=== PATIENT | female | born 1945 | race Caucasian/White ===

== ENCOUNTER 2016-06-18 10:05 | Emergency (ER) | payer BC ==
[~2016-06-18] VITALS: Ht 165.1 cm; Wt 55.2 kg
[~2016-06-18 10:05] MED LIST: CALCTAB5 PO; CETI10TA84 PO
[2016-06-18 10:14] VITALS: TEMP 37
[2016-06-18] MEDS ORDERED: AZIT250T PO (10:26)
[2016-06-18] MEDS ORDERED: SODIUM CHLORIDE 0.9% 500ML 500 ML IV STA (10:42)
[2016-06-18 10:56] LABS: BASO % 0.4 %; BASO ABS # 0.04 K/uL (0-0.2); COMPLETE YES; EOS % 1.3 %; HEMATOCRIT 38.9 % (37-47); IG% 0.2 %; LYMPH % 15.2 %; LYMPH ABS # 1.47 K/uL (1.2-3.4); MEAN CELL VOLUME 95.6 fL (80-100); MEAN CORPUSCULAR HEMOGLOBIN 32.2 pg (25-34); MEAN CORPUSCULAR HGB CONC 33.7 g/dl (32-36); MEAN PLATELET VOLUME 9.8 fL (7.4-10.4); NEUT % 71.9 %; PLATELET COUNT 261 K/uL (130-400); RED BLOOD COUNT 4.07 M/uL (4.2-5.4)
[2016-06-18 11:08] LABS: ALT/SGPT 167 U/L (12-78); AST/SGOT 96 U/L (15-37); BLOOD UREA NITROGEN 10 mg/dl (7-18); BUN/CREATININE RATIO 11.4 (10-20); CARBON DIOXIDE 29 mmol/L (21-32); CHLORIDE 103 mmol/L (98-107); CREATININE 0.88 mg/dl (0.60-1.20); GLUCOSE 105 mg/dl (70-99); POTASSIUM 3.9 mmol/L (3.5-5.1); PROTHROMBIN TIME (PATIENT) 10.4 SECONDS (9.0-12.0); SODIUM 140 mmol/L (136-145)
[2016-06-18 11:12] LABS: ALKALINE PHOSPHATASE 187 U/L (45-117)
--- NOTE | 2016-06-18 11:14 | DIAGNOSTIC IMAGING REPORT ---
CHEST ONE VIEW PORTABLE CLINICAL HISTORY: Respiratory distress. Dyspnea. COMPARISON STUDY: No previous studies for comparison. FINDINGS: Lung volumes are normal. There is no pneumothorax or pleural effusion. There may be mild right lower lung opacity. There is suspected biapical scarring. There is no evidence of pulmonary edema. Cardiac size is normal. IMPRESSION: Possible mild right lower lung opacity. Normal structures or atelectasis is favored although mild consolidation could appear similar. Electronically signed by: Christ Cotto M.D. 06/18/2016 11:12 AM
[2016-06-18 11:34] VITALS: O2SAT 96; Ht 165.1 cm; Wt 55.2 kg
--- NOTE | 2016-06-18 12:13 | DIAGNOSTIC IMAGING REPORT ---
CHEST CTA for PULMONARY ARTERIES CT DOSE: 178.18 mGy.cm HISTORY: Chest pain dyspnea TECHNIQUE: Multiaxial CT images of the chest were performed following the intravenous administration of contrast to evaluate the pulmonary arteries. Maximal intensity projection images were also obtained. COMPARISON STUDY: None. FINDINGS: Thoracic aorta shows minimal atherosclerotic change. No evidence for aneurysm or dissection. Pulmonary vascularity enhances appropriately. There are no significant filling defects. There are findings of segmental atelectasis involving the anterior aspect right middle lobe, medial right lower lobe, as well as right perihilar region. Patchy parenchymal infiltrate posterior aspect right lower lobe. Mild peribronchial thickening throughout. IMPRESSION: 1. No evidence for pulmonary embolus. 2. Scattered areas of subsegmental atelectasis throughout both hemithoraces with a small parenchymal infiltrate superior segment right lower lobe 3. Mild peribronchial thickening throughout both hemithoraces. 4. Mild cardiomegaly. Electronically signed by: Barber Demarco M.D. 06/18/2016 12:11 PM
--- NOTE | 2016-06-18 13:38 | EMERGENCY ROOM VISIT NOTE ---
History Report prepared by Cristo: Vicky Belcher Under the Supervision of: Dr. Rocky Browning D.O. First contact with patient: 10:26 Chief Complaint: ABNORMAL LABS Stated Complaint: TROUBLE BREATHING-SENT BY KELLY ELIZABETH History of Present Illness The patient is a 70 year old female who presents to the Emergency Room with complaints of sudden abnormal labs that were noticed today. The patient was seen by her PCP yesterday for respiratory problems. He performed an EKG and a D- dimer. The EKG was unremarkable but her D-dimer was elevated so he recommended that she come into the ED for further evaluation. The patient states that she was in [facility] for one month and just got home 4 days ago. She states that her son felt sick prior to leaving [facility]. The day before she left she did not feel well and she stayed in bed all day. However, when she flew home 4 days ago she felt well. Three days ago, the patient began to experience a headache, sinus congestion, sore throat, dry cough, and fatigue. She denies ear pain. She also recorded a fever of 100.4 but states that she has not taken her temperature since then. Additionally, she developed chest heaviness with her other symptoms. The chest heaviness seems to be worse in the morning and gradually improves throughout the day. The patient states that the chest heaviness completely resolves sometimes but she is unsure of exactly when. She developed post nasal drip yesterday. Mucinex offered some relief of her symptoms but she has not taken it the past couple days. Source of History: patient Onset: today Position: other (generalized) Quality: other (abnormal labs) Timing: other (sudden) Associated Symptoms: + chest pain (heaviness), + cough (dry), + fatigue, + fevers (100.4 ), + headache, + sorethroat Note: post nasal drip, sinus congestion, no ear pain Review of Systems See HPI for pertinent positives & negatives. A total of 10 systems reviewed and were otherwise negative. Past Medical & Surgical Medical Problems: (1) Asthma (2) Cholecystectomy (3) Skin graft operation (4) Stripping of vein (5) Tonsillectomy Family History No significant family history Social History Smoking Status: Former Smoker Alcohol Use: occasionally Marital Status: Housing Status: lives with significant other Current/Historical Medications Scheduled Azithromycin (Zithromax), 250 MG PO DAILY Calcium (Caltrate), 600 MG PO BID Cetirizine (Zyrtec), 5-10 MG PO DAILY PRN Allergies Coded Allergies: Penicillins (Verified Allergy, Unknown, unsure, 06/18/16) Sulfa Drugs (Verified Adverse Reaction, Unknown, gi upset, 06/18/16) Physical Exam Vital Signs Date Time Temp Pulse Resp B/P Pulse Ox O2 Delivery O2 Flow Rate FiO2 06/18/16 13:44 66 16 110/70 97 06/18/16 11:34 96 Room Air 06/18/16 11:34 96 Room Air 06/18/16 11:33 70 16 108/63 96 Room Air 06/18/16 10:14 37.0 98 18 113/71 94 Room Air Physical Exam GENERAL: alert, sitting up in bed, well appearing, well nourished, no distress, non-toxic HEAD: No maxillary or frontal sinus tenderness. EYE EXAM: normal conjunctiva, PERRL and EOM's grossly intact OROPHARYNX: no exudate, no erythema, lips, buccal mucosa, and tongue normal and mucous membranes are moist NECK: supple, no nuchal rigidity, no adenopathy, non-tender, negative Brudzinski LUNGS: Clear to auscultation. Normal chest wall mechanics HEART: no murmurs, S1 normal and S2 normal ABDOMEN: abdomen soft, non-tender, normo-active bowel sounds, no masses, no rebound or guarding. BACK: Back is symmetrical on inspection and there is no deformity, no midline tenderness, no CVA tenderness. SKIN: no rashes and no bruising UPPER EXTREMITIES: upper extremities are grossly normal. LOWER EXTREMITIES: No pitting edema. Calves equal bilaterally. NEURO EXAM: Normal sensorium, cranial nerves II-XII grossly intact, normal speech, no gross weakness of arms, no gross weakness of legs. Medical Decision & Procedures ER Provider Diagnostic Interpretation: Xray results per the radiologist and my interpretation. Other results have been interpreted by the radiologist and reviewed by me. CHEST ONE VIEW PORTABLE CLINICAL HISTORY: Respiratory distress. Dyspnea. COMPARISON STUDY: No previous studies for comparison. FINDINGS: Lung volumes are normal. There is no pneumothorax or pleural effusion. There may be mild right lower lung opacity. There is suspected biapical scarring. There is no evidence of pulmonary edema. Cardiac size is normal. IMPRESSION: Possible mild right lower lung opacity. Normal structures or atelectasis is favored although mild consolidation could appear similar. Electronically signed by: Christ Cotto M.D. 06/18/2016 11:12 AM CHEST CTA for PULMONARY ARTERIES CT DOSE: 178.18 mGy.cm HISTORY: Chest pain dyspnea TECHNIQUE: Multiaxial CT images of the chest were performed following the intravenous administration of contrast to evaluate the pulmonary arteries. Maximal intensity projection images were also obtained. COMPARISON STUDY: None. FINDINGS: Thoracic aorta shows minimal atherosclerotic change. No evidence for aneurysm or dissection. Pulmonary vascularity enhances appropriately. There are no significant filling defects. There are findings of segmental atelectasis involving the anterior aspect right middle lobe, medial right lower lobe, as well as right perihilar region. Patchy parenchymal infiltrate posterior aspect right lower lobe. Mild peribronchial thickening throughout. IMPRESSION: 1. No evidence for pulmonary embolus. 2. Scattered areas of subsegmental atelectasis throughout both hemithoraces with a small parenchymal infiltrate superior segment right lower lobe 3. Mild peribronchial thickening throughout both hemithoraces. 4. Mild cardiomegaly. Electronically signed by: Barber Demarco M.D. 06/18/2016 12:11 PM Laboratory Results 06/18/16 10:30 Red Blood Count 4.07, Mean Corpuscular Volume 95.6, Mean Corpuscular Hemoglobin 32.2, Mean Corpuscular Hemoglobin Concent 33.7, Mean Platelet Volume 9.8, Neutrophils (%) (Auto) 71.9, Lymphocytes (%) (Auto) 15.2, Monocytes (%) (Auto) 11.0, Eosinophils (%) (Auto) 1.3, Basophils (%) (Auto) 0.4, Neutrophils # (Auto ) 6.97, Lymphocytes # (Auto) 1.47, Monocytes # (Auto) 1.07, Eosinophils # (Auto ) 0.13, Basophils # (Auto) 0.04 06/18/16 10:30 Test 06/18/16 10:30 06/18/16 11:05 White Blood Count 9.70 K/uL (4.8-10.8) Red Blood Count 4.07 M/uL (4.2-5.4) Hemoglobin 13.1 g/dL (12.0-16.0) Hematocrit 38.9 % (37-47) Mean Corpuscular Volume 95.6 fL (80-100) Mean Corpuscular Hemoglobin 32.2 pg (25-34) Mean Corpuscular Hemoglobin Concent 33.7 g/dl (32-36) Platelet Count 261 K/uL (130-400) Mean Platelet Volume 9.8 fL (7.4-10.4) Neutrophils (%) (Auto) 71.9 % Lymphocytes (%) (Auto) 15.2 % Monocytes (%) (Auto) 11.0 % Eosinophils (%) (Auto) 1.3 % Basophils (%) (Auto) 0.4 % Neutrophils # (Auto) 6.97 K/uL (1.4-6.5) Lymphocytes # (Auto) 1.47 K/uL (1.2-3.4) Monocytes # (Auto) 1.07 K/uL (0.11-0.59) Eosinophils # (Auto) 0.13 K/uL (0-0.5) Basophils # (Auto) 0.04 K/uL (0-0.2) RDW Standard Deviation 46.9 fL (36.4-46.3) RDW Coefficient of Variation 13.4 % (11.5-14.5) Immature Granulocyte % (Auto) 0.2 % Immature Granulocyte # (Auto) 0.02 K/uL (0.00-0.02) Prothrombin Time 10.4 SECONDS (9.0-12.0) Prothromb Time International Ratio 1.0 (0.9-1.1) Activated Partial Thromboplast Time 26.4 SECONDS (21.0-31.0) Partial Thromboplastin Ratio 1.0 Anion Gap 8.0 mmol/L (3-11) Est Creatinine Clear Calc Drug Dose 51.8 ml/min Estimated GFR () 77.2 Estimated GFR (Non- 66.6 BUN/Creatinine Ratio 11.4 (10-20) Calcium Level 9.0 mg/dl (8.5-10.1) Total Bilirubin 0.3 mg/dl (0.2-1) Aspartate Amino Transf (AST/SGOT) 96 U/L (15-37) Alanine Aminotransferase (ALT/SGPT) 167 U/L (12-78) Alkaline Phosphatase 187 U/L (45-117) Troponin I < 0.015 ng/ml (0-0.045) Total Protein 7.1 gm/dl (6.4-8.2) Albumin 3.5 gm/dl (3.4-5.0) Globulin 3.6 gm/dl (2.5-4.0) Albumin/Globulin Ratio 1.0 (0.9-2) Influenza Type A Antigen Neg for Influ A (NEG) Influenza Type B Antigen Neg for Influ B (NEG) Laboratory results per my review. Medications Administered Medications (Trade) Dose Ordered Sig/Jean Paul Route Start Time Stop Time Status Last Admin Dose Admin Sodium Chloride (Nss 500ml) 500 ml @ 999 mls/hr Q31M STAT IV 06/18/16 10:42 06/18/16 11:12 DC 06/18/16 11:16 999 MLS/HR ECG Indication: SOB/dyspnea Rate (beats per minute): 68 Rhythm: sinus rhythm Findings: left axis deviation, no ectopy ED Course ED COURSE: Vital signs were reviewed and showed normal. The patients medical record was reviewed The above diagnostic studies were performed and reviewed. ED treatments and interventions as stated above. 1033: The patient was evaluated in room B3. A complete history and physical examination was performed. 1042: Ordered Sodium Chloride 500 ml @ 999 mls/hr IV 1120: The nurse informed me that the patient does not want to have another EKG performed since she just got one yesterday. We are going to get the EKG from yesterday. 1258: Upon reevaluation, the patient is doing well. I instructed the patient to continue taking the azithromycin. I discussed my findings with the patient and she understands and agrees with the treatment plan. Based on the patients age, coexisting illnesses, exam and lab findings the decision to treat as an outpatient was made. The patient remained stable while under my care. The patient appeared well at the time of discharge. 1330: I told the patient to follow-up with her PCP for transaminitis. Medical Decision Differential diagnoses includes but is not limited to pneumonia, bronchitis, COPD/Asthma exacerbation, pneumothorax, pulmonary embolism, congestive heart failure, acute coronary syndrome Patient is a 70-year-old female who presents the ER with a productive cough and runny nose and chest tightness which has been there for the past 4 days. She has no exertional symptoms. EKG was unremarkable. Troponin was negative. Chest x-ray shows no focal infiltrate. She has a mild transaminitis on labs. Patient notes that she does have a history of elevated LFTs. She has no belly pain and consequently was not pursued any further. Recommended for follow-up next week. Vitals are stable. Sent her for a CT PE due to her recent travel. CT PE shows a clear pneumonia. She is currently on azithromycin. She notes she is feeling slightly better and she is discharged on azithromycin to follow- up with her primary care doctor is an outpatient for pneumonia. I also instructed her to follow-up for repeat LFTs within the week. Discussed with Pt concerning signs and symptoms to watch out for. Pt was instructed to follow up with their PCP and discussed with the patient their option to return to the ED at anytime for persistent or worsening symptoms. The appropriate anticipatory guidance and out-patient management, including indications for return to the emergency department, were explained at length to the patient and understood. Impression Primary Impression: Pneumonia Additional Impression: Transaminitis Scribe Attestation The scribe's documentation has been prepared under my direction and personally reviewed by me in its entirety. I confirm that the note above accurately reflects all work, treatment, procedures, and medical decision making performed by me. Departure Information Dispostion Home / Self-Care Referrals Kelly Elizabeth D.O. (PCP) Forms HOME CARE DOCUMENTATION FORM, IMPORTANT VISIT INFORMATION, WORK / SCHOOL INSTRUCTIONS Patient Instructions A Signature Page, My [facility], Pneumonia (Bacterial) - [facility] Additional Instructions Please follow up with your primary care doctor with in the next 24 hours. Any worsening of your symptoms, please return to the ED immediately. This includes fevers greater than 100.4, inability to eat or drink, passing out, worsening shortness breath, or any other concerning signs or symptoms from your stand point. Please continue your azithromycin as prescribed by primary care doctor. Her symptoms should improve within 48 hours.
[2016-06-18 13:44] VITALS: BP 110/70; PULSE 66; O2SAT 97
== END 2016-06-18 13:45 | disposition home or self-care (01) ==
LOC: C.EDB 10:07
DX: J18.9 Pneumonia, unspecified organism (principal); R74.0 Nonspecific elevation of levels of transaminase and lactic acid dehydrogenase [LDH]; J45.909 Unspecified asthma, uncomplicated; Z90.49 Acquired absence of other specified parts of digestive tract; Z87.891 Personal history of nicotine dependence; Z79.899 Other long term (current) drug therapy; Z88.0 Allergy status to penicillin; Z88.2 Allergy status to sulfonamides

== ENCOUNTER 2016-07-02 17:40 | Emergency (ER) | payer BC ==
[~2016-07-02] VITALS: Ht 165.1 cm; Wt 58.4 kg
[~2016-07-02 17:40] MED LIST changes: +AZIT250T PO
[2016-07-02 17:51] VITALS: TEMP 37.2; Ht 165.1 cm; Wt 58.4 kg
[2016-07-02] MEDS ORDERED: SODIUM CHLORIDE 0.9% 1000ML 1,000 ML IV STA (17:57)
[2016-07-02] MEDS ORDERED: CALC500C70 PO (18:12)
[2016-07-02] MEDS ORDERED: PRLSR20 PO (18:12)
[2016-07-02] MEDS ORDERED: TURM1CAP2 PO (18:13)
[2016-07-02] MEDS ORDERED: ASCO500T16 PO (18:13)
[2016-07-02 18:42] LABS: BASO % 0.3 %; BASO ABS # 0.03 K/uL (0-0.2); COMPLETE YES; EOS % 0.8 %; HEMATOCRIT 37.7 % (37-47); IG% 0.4 %; LYMPH % 7.9 %; MEAN CELL VOLUME 93.1 fL (80-100); MEAN CORPUSCULAR HEMOGLOBIN 31.1 pg (25-34); MEAN CORPUSCULAR HGB CONC 33.4 g/dl (32-36); MONO % 8.9 %; NEUT % 81.7 %; PLATELET COUNT 518 K/uL (130-400); RED BLOOD COUNT 4.05 M/uL (4.2-5.4); WHITE BLOOD COUNT 10.17 K/uL (4.8-10.8)
[2016-07-02 18:59] LABS: BLOOD UREA NITROGEN 9 mg/dl (7-18); BUN/CREATININE RATIO 11.4 (10-20); CALCIUM 8.9 mg/dl (8.5-10.1); CARBON DIOXIDE 31 mmol/L (21-32); CHLORIDE 98 mmol/L (98-107); CREATININE 0.76 mg/dl (0.60-1.20); GLUCOSE 108 mg/dl (70-99); MAGNESIUM 2.1 mg/dl (1.8-2.4); POTASSIUM 4.2 mmol/L (3.5-5.1); SODIUM 136 mmol/L (136-145)
[2016-07-02 19:04] LABS: INR 1.1 (0.9-1.1); PARTIAL THROMBOPLASTIN RATIO 1.1; PROTHROMBIN TIME (PATIENT) 11.4 SECONDS (9.0-12.0)
[2016-07-02 19:10] LABS: CKMB/CK RATIO 1.2 (0-3.0); THYROID STIMULATING HORMONE 0.623 uIu/ml (0.300-4.500)
[2016-07-02] MEDS ORDERED: OPTIRAY 320 IV PRN (19:30)
--- NOTE | 2016-07-02 19:51 | DIAGNOSTIC IMAGING REPORT ---
CT ANGIOGRAM OF THE CHEST CLINICAL HISTORY: Pneumonia. COMPARISON STUDY: Chest CT dated 06/18/2016. TECHNIQUE: Following the IV administration of 84 cc of Optiray 320, CT angiogram of the chest was performed from the upper abdomen to the thoracic inlet utilizing the pulmonary embolus protocol. Images are reviewed in the axial, sagittal, and coronal planes. 3-D MIPS images are created and assessed. IV contrast was administered without complication. CT DOSE: 201.90 mGy.cm FINDINGS: Thyroid: Imaged portions of the thyroid gland are normal in size and attenuation. Thoracic aorta: There is mild atherosclerotic calcification of the thoracic aorta, which is normal in caliber and demonstrates standard 3-vessel arch anatomy. No dissection is seen. Pulmonary vasculature: The pulmonary trunk is normal in caliber. There are no filling defects identified in main, lobar, or segmental pulmonary branches to suggest pulmonary embolus. Heart: The heart is mildly enlarged and without pericardial effusion. Lungs and pleural spaces: There is biapical scarring. There is dense patchy airspace consolidation in the right middle and right lower lobe. Patchy consolidation is also seen in the lingula. There is a small associated right pleural effusion. The trachea and central airways are clear. Mediastinum: There are enlarged mediastinal lymph nodes. A high right peritracheal node on image #257 measures 11 mm in short axis. A subcarinal node measures 1.5 cm in short axis as seen on image #188. Marisela: There are enlarged hilar lymph nodes. The largest is on the right and measures up to 1.6 cm short axis. Axillae: There is no axillary lymphadenopathy. Upper abdomen: Cholecystectomy clips are identified. A 9 mm cyst is noted in the left lobe of liver. Partially visualized upper abdominal viscera is otherwise within normal limits. Skeletal structures: The skeletal structures are osteopenic. No lytic or blastic bony lesions are seen. IMPRESSION: 1. There is no evidence of pulmonary embolus in the main, lobar, or segmental pulmonary arteries. 2. There is multifocal patchy airspace consolidation identified in the lingula, the right middle lobe, and the right lower lobe. There is a small associated right pleural effusion. The appearance is typical for multifocal pneumonia and this has worsened from 06/18/2016. Radiographic follow-up to resolution is recommended. 3. There are mildly enlarged mediastinal and hilar lymph nodes, likely on a reactive basis. 4. Mild cardiac enlargement. 5. Additional findings as above. Electronically signed by: Arnold King M.D. 07/02/2016 7:49 PM Dictated Date/Time: 07/02/2016 7:42 PM
--- NOTE | 2016-07-02 20:24 | EMERGENCY ROOM VISIT NOTE ---
History Report prepared by Cristo: Jovita Altman Under the Supervision of: Dr. Luciano Urban D.O. First contact with patient: 17:48 Chief Complaint: ALLERGIC REACTION Stated Complaint: MEDICATION SIDE EFFECT, WANTS EVAL. History of Present Illness The patient is a 70 year old female who presents to the Emergency Room with complaints of persistent bilateral feet and toe numbness that began around 1700 this evening. The patient states that today she took her first dose of Levaquin for persistent pneumonia. She states that June 16 she was diagnosed with pneumonia and was placed on Azithromycin. The patient states that she began to feel better and states that her fevers were going down. She states that she still had chills though. The patient additionally notes chest heaviness and shortness of breath, but states that it is not as bad as it originally was. The patient states that she had a chest x-ray done and her PCP placed her on Levaquin for the persistent pneumonia. She states that she took her first dose of Levaquin at 1300 today. The patient states that after she took the medications she went upstairs to lay down after drinking carrot juice, orange juice, and water. She states that when she went to get up, she noticed numbness to her bilateral feet and states that she thought if she would stand she thought that she would break her ankles. The patient states that she read the possible side effects of Levaquin, and states that numbness was one of the possible side effects. She states that today she is experiencing a headache, which she notes has been ongoing since she was diagnosed with pneumonia. The patient notes that she was in [facility] until June 14. She additionally states that she had blood work and a chest x-ray done today at her PCP's office. Source of History: patient Onset: 1700 this evening Position: foot (bilateral), toe(s) Quality: numbness Timing: other (persistent) Associated Symptoms: + SOB, + chest pain (heaviness), + headache Review of Systems See HPI for pertinent positives & negatives. A total of 10 systems reviewed and were otherwise negative. Past Medical & Surgical Medical Problems: (1) Asthma (2) Cholecystectomy (3) Skin graft operation (4) Stripping of vein (5) Tonsillectomy Family History No significant family history Social History Smoking Status: Former Smoker Alcohol Use: occasionally Marital Status: Housing Status: lives with significant other Current/Historical Medications Scheduled Ascorbic Acid (Ascorbic Acid), 500 MG PO DAILY Calcium/Vitamin D (Os-Mehrdad 500 Plus D), 1 TAB PO BID Cetirizine (Zyrtec), 5-10 MG PO DAILY PRN Omeprazole (Prilosec), 20 MG PO DAILY Turmeric (Curcuma Longa) (Turmeric), 450 MG PO DAILY Allergies Coded Allergies: Penicillins (Verified Allergy, Unknown, unsure, 07/02/16) Sulfa Drugs (Verified Adverse Reaction, Unknown, gi upset, 07/02/16) Physical Exam Vital Signs Date Time Temp Pulse Resp B/P Pulse Ox O2 Delivery O2 Flow Rate FiO2 07/02/16 19:15 104 118/70 118 129/76 112 131/82 07/02/16 17:54 125 07/02/16 17:51 37.2 115 25 148/88 96 Room Air 07/02/16 17:47 Room Air Physical Exam CONSTITUTIONAL/VITAL SIGNS: Reviewed / noted above. GENERAL: Non-toxic in appearance. INTEGUMENTARY: Warm, dry, and [place]. HEAD: Normocephalic. EYES: without scleral icterus or trauma. ENT/OROPHARYNX: clear and moist. LYMPHADENOPATHY/NECK: Is supple without lymphadenopathy or meningismus. RESPIRATORY: Lungs clear and equal. CARDIOVASCULAR: Tachycardic rate and regular rhythm. GI/ABDOMEN: Soft and nontender. No organomegaly or pulsatile mass. No rebound or guarding. Normal bowel sounds. EXTREMITIES: Warm and well perfused. Normal lower extremity reflexes. Normal strength. BACK: No CVA tenderness. NEUROLOGICAL: Intact without focal deficits. PSYCHIATRIC: normal affect. MUSCULOSKELETAL: Normally developed with good muscle tone. Medical Decision & Procedures ER Provider Diagnostic Interpretation: CT results as stated below per my review and radiologist interpretation: CT ANGIOGRAM OF THE CHEST CLINICAL HISTORY: Pneumonia. COMPARISON STUDY: Chest CT dated 06/18/2016. TECHNIQUE: Following the IV administration of 84 cc of Optiray 320, CT angiogram of the chest was performed from the upper abdomen to the thoracic inlet utilizing the pulmonary embolus protocol. Images are reviewed in the axial, sagittal, and coronal planes. 3-D MIPS images are created and assessed. IV contrast was administered without complication. CT DOSE: 201.90 mGy.cm FINDINGS: Thyroid: Imaged portions of the thyroid gland are normal in size and attenuation. Thoracic aorta: There is mild atherosclerotic calcification of the thoracic aorta, which is normal in caliber and demonstrates standard 3-vessel arch anatomy. No dissection is seen. Pulmonary vasculature: The pulmonary trunk is normal in caliber. There are no filling defects identified in main, lobar, or segmental pulmonary branches to suggest pulmonary embolus. Heart: The heart is mildly enlarged and without pericardial effusion. Lungs and pleural spaces: There is biapical scarring. There is dense patchy airspace consolidation in the right middle and right lower lobe. Patchy consolidation is also seen in the lingula. There is a small associated right pleural effusion. The trachea and central airways are clear. Mediastinum: There are enlarged mediastinal lymph nodes. A high right peritracheal node on image #257 measures 11 mm in short axis. A subcarinal node measures 1.5 cm in short axis as seen on image #188. Marisela: There are enlarged hilar lymph nodes. The largest is on the right and measures up to 1.6 cm short axis. Axillae: There is no axillary lymphadenopathy. Upper abdomen: Cholecystectomy clips are identified. A 9 mm cyst is noted in the left lobe of liver. Partially visualized upper abdominal viscera is otherwise within normal limits. Skeletal structures: The skeletal structures are osteopenic. No lytic or blastic bony lesions are seen. IMPRESSION: 1. There is no evidence of pulmonary embolus in the main, lobar, or segmental pulmonary arteries. 2. There is multifocal patchy airspace consolidation identified in the lingula, the right middle lobe, and the right lower lobe. There is a small associated right pleural effusion. The appearance is typical for multifocal pneumonia and this has worsened from 06/18/2016. Radiographic follow-up to resolution is recommended. 3. There are mildly enlarged mediastinal and hilar lymph nodes, likely on a reactive basis. 4. Mild cardiac enlargement. 5. Additional findings as above. Electronically signed by: Arnold King M.D. 07/02/2016 7:49 PM Dictated Date/Time: 07/02/2016 7:42 PM Laboratory Results 07/02/16 18:25 Red Blood Count 4.05, Mean Corpuscular Volume 93.1, Mean Corpuscular Hemoglobin 31.1, Mean Corpuscular Hemoglobin Concent 33.4, Mean Platelet Volume 9.0, Neutrophils (%) (Auto) 81.7, Lymphocytes (%) (Auto) 7.9, Monocytes (%) (Auto) 8.9, Eosinophils (%) (Auto) 0.8, Basophils (%) (Auto) 0.3, Neutrophils # (Auto) 8.31, Lymphocytes # (Auto) 0.80, Monocytes # (Auto) 0.91, Eosinophils # (Auto) 0.08, Basophils # (Auto) 0.03 07/02/16 18:25 Test 07/02/16 18:25 07/02/16 18:30 White Blood Count 10.17 K/uL (4.8-10.8) Red Blood Count 4.05 M/uL (4.2-5.4) Hemoglobin 12.6 g/dL (12.0-16.0) Hematocrit 37.7 % (37-47) Mean Corpuscular Volume 93.1 fL (80-100) Mean Corpuscular Hemoglobin 31.1 pg (25-34) Mean Corpuscular Hemoglobin Concent 33.4 g/dl (32-36) Platelet Count 518 K/uL (130-400) Mean Platelet Volume 9.0 fL (7.4-10.4) Neutrophils (%) (Auto) 81.7 % Lymphocytes (%) (Auto) 7.9 % Monocytes (%) (Auto) 8.9 % Eosinophils (%) (Auto) 0.8 % Basophils (%) (Auto) 0.3 % Neutrophils # (Auto) 8.31 K/uL (1.4-6.5) Lymphocytes # (Auto) 0.80 K/uL (1.2-3.4) Monocytes # (Auto) 0.91 K/uL (0.11-0.59) Eosinophils # (Auto) 0.08 K/uL (0-0.5) Basophils # (Auto) 0.03 K/uL (0-0.2) RDW Standard Deviation 43.8 fL (36.4-46.3) RDW Coefficient of Variation 12.9 % (11.5-14.5) Immature Granulocyte % (Auto) 0.4 % Immature Granulocyte # (Auto) 0.04 K/uL (0.00-0.02) Prothrombin Time 11.4 SECONDS (9.0-12.0) Prothromb Time International Ratio 1.1 (0.9-1.1) Activated Partial Thromboplast Time 29.2 SECONDS (21.0-31.0) Partial Thromboplastin Ratio 1.1 D-Dimer 4640 ug/L FEU (0-500) Anion Gap 7.0 mmol/L (3-11) Est Creatinine Clear Calc Drug Dose 62.0 ml/min Estimated GFR () 92.1 Estimated GFR (Non- 79.5 BUN/Creatinine Ratio 11.4 (10-20) Calcium Level 8.9 mg/dl (8.5-10.1) Magnesium Level 2.1 mg/dl (1.8-2.4) Total Creatine Kinase 57 U/L (26-192) Creatine Kinase MB 0.7 ng/ml (0.5-3.6) Creatine Kinase MB Ratio 1.2 (0-3.0) Troponin I < 0.015 ng/ml (0-0.045) Lipase 67 U/L (73-393) Thyroid Stimulating Hormone (TSH) 0.623 uIu/ml (0.300-4.500) Laboratory results as stated above per my review. Medications Administered Medications (Trade) Dose Ordered Sig/Jean Paul Route Start Time Stop Time Status Last Admin Dose Admin Sodium Chloride (Nss 1000ml) 1,000 ml @ 999 mls/hr Q1H1M STAT IV 07/02/16 17:57 07/02/16 18:57 DC 07/02/16 18:25 999 MLS/HR ECG Indication: chest pain Rate (beats per minute): 105 Rhythm: sinus tachycardia Findings: no acute ischemic change, no ectopy ED Course 1748: Previous medical records were reviewed. The patient was evaluated in room B5. A complete history and physical examination was performed. 1756: Ordered Sodium Chloride 1000 ml @ 999 mls/hr IV. 2023: I reevaluated the patient and she is resting comfortably. I discussed the exam findings with her and I discussed the treatment plan. She verbalized complete understanding and agreement. She is ready to go home. Medical Decision Differential includes acute coronary syndrome, myocardial infarction, CVA, TIA, anemia, infection, pneumonia, UTI, pyelonephritis, poor nutrition, dehydration, electrolyte disturbance,hypoglycemia. This is a 70-year-old female who presents to the ED with a chief complaint of tingling in her lower extremities. The patient states that she was seen by her PCP today and because of a continuing pneumonia that was not improved with Zithromax, she was placed on Levaquin. She took her first dose around 2 PM. Around 5 PM she developed some weakness in her ankles and paresthesias in her lower extremities. She states that she found this when reading the side effects of the medication. She came in for evaluation. Her vital signs revealed a tachycardia. Her vital signs were otherwise stable. She is afebrile. Exam did not reveal any acute distress. Blood work reveals a normal CBC. Complete metabolic panel and troponin are normal. TSH was normal. D- dimer was elevated. CT scan of the chest reveals a right middle lobe, right lower lobe and lingula pneumonia. The patient was told results the test. I advised the patient that continue Levaquin would be the appropriate thing to do since her pneumonia persisted despite Zithromax. She was told to follow up with her PCP in 1-2 days for recheck. Return here for worsening. She was given a walker to help assist with walking. Impression Primary Impression: Adverse reaction to drug Additional Impression: Pneumonia Scribe Attestation The scribe's documentation has been prepared under my direction and personally reviewed by me in its entirety. I confirm that the note above accurately reflects all work, treatment, procedures, and medical decision making performed by me. Departure Information Dispostion Home / Self-Care Referrals Tala Nagel D.O. (PCP) Forms HOME CARE DOCUMENTATION FORM, IMPORTANT VISIT INFORMATION Patient Instructions My [facility] Additional Instructions Continue Levaquin. Follow-up with your doctor in 1-2 days for recheck. Return for worsening or new concerns. Repeat chest x-ray recommended upon improvement of symptoms. Use walker as needed. Take deep breaths periodically every hour or more. Problem Qualifiers
[2016-07-02 20:42] LABS: URINE APPEARANCE CLEAR (CLEAR); URINE BILIRUBIN NEG (NEG); URINE COLOR YELLOW; URINE EPITHELIAL CELL AUTO 0-5 /lpf (0-5); URINE NITRITE NEG (NEG); URINE PH >= 9.0 (4.5-7.5); URINE SPECIFIC GRAVITY 1.005 (1.000-1.030); UROBILINOGEN NEG (NEG); ZZUR CULT IF INDIC CLEAN CATCH NO
[2016-07-02 20:56] LABS: MANUAL MICROSCOPIC REQUIRED? NO; REVIEW REQ? NO
[2016-07-02 21:15] VITALS: BP 123/71; PULSE 106; O2SAT 95
== END 2016-07-02 21:30 | disposition home or self-care (01) ==
LOC: EDBD 17:40 → C.EDB 17:42
DX: T88.7XXA Unspecified adverse effect of drug or medicament, initial encounter (principal); X58.XXXA Exposure to other specified factors, initial encounter; J18.9 Pneumonia, unspecified organism; J45.909 Unspecified asthma, uncomplicated; Z98.890 Other specified postprocedural states; Z87.891 Personal history of nicotine dependence; Z79.899 Other long term (current) drug therapy; Z88.0 Allergy status to penicillin; Z88.2 Allergy status to sulfonamides

== ENCOUNTER → 2016-07-05 | Outpatient (CLI) | payer BC ==
[~2016-07-05] MED LIST changes: +ASCO500T16 PO; -AZIT250T PO; +CALC500C70 PO; -CALCTAB5 PO; +PRLSR20 PO; +TURM1CAP2 PO
== END | disposition home or self-care (01) ==
LOC: C.LABSPEC 10:31
PROVIDERS: ATTEND Internal Medicine Pulmonary Disease
DX: J18.9 Pneumonia, unspecified organism (principal)

== ENCOUNTER → 2016-07-17 | Outpatient (CLI) | payer BC ==
--- NOTE | 2016-07-17 16:24 | DIAGNOSTIC IMAGING REPORT ---
TWO VIEW CHEST CLINICAL HISTORY: Follow-up pneumonia. FINDINGS: PA and lateral chest radiographs are compared to study dated 06/18/2016 and correlated with chest CT dated 07/02/2016. The cardiomediastinal silhouette is unremarkable. There is mild atherosclerotic calcification of the thoracic aorta. Chronic interstitial thickening is similar to previous. There are minimal residual airspace opacities at medial right lung base. This has significantly cleared from previous. Biapical scarring is observed. No pleural effusion or pneumothorax is identified. The skeletal structures are osteopenic. The bony thorax appears intact. IMPRESSION: 1. There are minimal residual airspace opacities at the right lung base. This has significantly cleared from previous. 1 additional follow-up examination in 2 weeks time is recommended to document complete resolution. 2. The left lung appears clear. No pleural effusion is identified. Electronically signed by: Arnold King M.D. 07/17/2016 4:23 PM Dictated Date/Time: 07/17/2016 4:20 PM
== END | disposition home or self-care (01) ==
LOC: C.RAD1850 16:07
PROVIDERS: ATTEND Internal Medicine Pulmonary Disease
DX: J18.9 Pneumonia, unspecified organism (principal)

== ENCOUNTER → 2016-08-13 | Outpatient (CLI) | payer BC ==
--- NOTE | 2016-08-13 16:36 | MAMMOGRAPHY REPORT ---
BILATERAL DIGITAL SCREENING MAMMOGRAM WITH CAD: 08/13/2016 CLINICAL HISTORY: Routine screening. Patient has no complaints. TECHNIQUE: Bilateral CC and MLO views were obtained. Current study was also evaluated with a Comput er Aided Detection (CAD) system. COMPARISON: Comparison is made to exams dated: 07/26/2015 mammogram, 07/20/2014 mammogram, 03/10/2013 m ammogram, 12/26/2010 mammogram, 12/06/2009 mammogram - [facility], and 09/08/2007. BREAST COMPOSITION: The tissue of both breasts is extremely dense, which lowers the sensitivity of mammography. FINDINGS: No obvious new mass, architectural distortion or cluster of suspicious microcalcification s is seen. IMPRESSION: ACR BI-RADS CATEGORY 1: NEGATIVE Stable bilateral mammograms, without mammographic evidence of malignancy. A 1 year screening mammogr am is recommended. The patient will receive written notification of the results. Approximately 10% of breast cancers are not detected with mammography. A negative mammographic repor t should not delay biopsy if a clinically suggestive mass is present. Chantal Trejo M.D. ay/:08/13/2016 15:25:58 Center Director Lead Teacher: Lilian BACK(R)(M), [facility] letter sent: Normal 1/2 BI-RADS Code: ACR BI-RADS Category 1: Negative
== END | disposition home or self-care (01) ==
LOC: C.MAMM 13:13
PROVIDERS: ATTEND Obstetrics & Gynecology
DX: Z12.31 Encounter for screening mammogram for malignant neoplasm of breast (principal)

== ENCOUNTER → 2016-08-15 | Outpatient (CLI) | payer BC ==
--- NOTE | 2016-08-15 13:57 | DIAGNOSTIC IMAGING REPORT ---
CHEST 2 VIEWS ROUTINE CLINICAL HISTORY: Pneumonia COMPARISON STUDY: 07/17/2016 FINDINGS: The cardiac and mediastinal contours remain stable. There is near complete interval resolution of the previously described right basilar airspace opacities. There are no pleural effusions.[ IMPRESSION: Near complete interval resolution of the previously described right basilar airspace opacities. Electronically signed by: Nito Madison M.D. 08/15/2016 1:55 PM Dictated Date/Time: 08/15/2016 1:54 PM
== END | disposition home or self-care (01) ==
LOC: C.RAD1850 13:40
PROVIDERS: ATTEND Internal Medicine Pulmonary Disease
DX: J18.9 Pneumonia, unspecified organism (principal)

== ENCOUNTER → 2017-08-19 | Outpatient (CLI) | payer OTHER ==
--- NOTE | 2017-08-22 11:13 | MAMMOGRAPHY REPORT ---
BILATERAL DIGITAL SCREENING MAMMOGRAM TOMOSYNTHESIS WITH CAD: 08/19/2017 CLINICAL HISTORY: Routine screening. Patient has no complaints. TECHNIQUE: Breast tomosynthesis in addition to standard 2D mammography was performed. Current study was also evaluated with a Computer Aided Detection (CAD) system. COMPARISON: Comparison is made to exams dated: 08/13/2016 mammogram, 07/26/2015 mammogram, 07/20/2014 ma mmogram, 03/10/2013 mammogram, 12/26/2010 mammogram, and 12/06/2009 mammogram - [facility] [address]. BREAST COMPOSITION: The tissue of both breasts is extremely dense, which lowers the sensitivity of m ammography. FINDINGS: The parenchymal pattern is unchanged. No developing mass, architectural distortion or clus ter of suspicious microcalcifications is seen in either breast. IMPRESSION: ACR BI-RADS CATEGORY 2: BENIGN There is no mammographic evidence of malignancy. A 1 year screening mammogram is recommended. The pa tient will receive written notification of the results. Approximately 10% of breast cancers are not detected with mammography. A negative mammographic report should not delay biopsy if a clinically suggestive mass is present. Chantal Trejo M.D. ay/:08/19/2017 16:56:06 Makeup Artistry Instructor: Ashlee BACK(Fernando)(Huma)(BD), [facility] letter sent: Normal 1/2 BI-RADS Code: ACR BI-RADS Category 2: Benign
== END | disposition home or self-care (01) ==
LOC: C.MAMM 13:00
PROVIDERS: ATTEND Internal Medicine
DX: Z12.31 Encounter for screening mammogram for malignant neoplasm of breast (principal)

== ENCOUNTER 2021-06-27 16:50 | Observation (INO) ==
[2021-06-27 17:33] LABS: Basophils # (auto) 0.05 K/uL (0-0.2); Basophils % (auto) 0.8 %; Eosinophils # (auto) 0.14 K/uL (0-0.5); Eosinophils % (auto) 2.2 %; Hematocrit (blood only) 40.1 % (37-47); Hemoglobin 12.8 g/dL (12.0-16.0); Immature Granulocytes # (auto) 0.01 K/uL (0.00-0.02); Immature Granulocytes % (auto) 0.2 %; Lymphocytes % (auto) 47.8 %; Mean Corpuscular Hemoglobin 31.3 pg (25-34); Mean Corpuscular Hgb Conc 31.9 g/dL (32-36); Mean Platelet Volume 9.8 fL (7.4-10.4); Monocytes % (auto) 7.7 %; Neutrophils # (auto) 2.69 K/uL (1.4-6.5); Neutrophils % (auto) 41.3 %; Platelet Count 223 K/uL (130-400); RDW Coefficient of Variation 13.6 % (11.5-14.5); RDW Standard Deviation 48.5 fL (36.4-46.3); Red Blood Count 4.09 M/uL (4.2-5.4); White Blood Count 6.49 K/uL (4.8-10.8)
[2021-06-27 18:00] LABS: Troponin I < 0.03 ng/ml (0-0.04)
--- NOTE | 2021-06-27 18:04 | Emergency Department Note ---
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 D3) [Vitamin D3] 25 mcg (1,000 unit) Tablet 25 mcg PO DAILY RF: 0 aspirin [Aspirin Low Dose] 81 mg Tablet,Delayed Release (Dr/Ec) 81 mg PO DAILY RF: 0 Referrals Referrals: Naima Rutledge MD [Primary Care Provider] -
[2021-06-27 18:06] LABS: Alanine Aminotransferase 18 U/L (7-52); Albumin Globulin Ratio 1.6 (0.9-2); Albumin Level 4.2 gm/dl (3.4-5.0); Alkaline Phosphatase 46 U/L (34-104); Anion Gap 8 (3-11); Aspartate Aminotransferase 24 U/L (13-39); BUN Creatinine Ratio 21.9 (10-20); Bilirubin,Total 0.3 mg/dl (0.2-1.0); Blood Urea Nitrogen 21 mg/dl (6-23); Carbon Dioxide 28 mmol/L (21-32); Chloride 103 mmol/L (98-107); Creatinine Clr Calc Pharmacy 45.6 ml/min; Est GFR (African American) 67.1 ml/min; Est GFR (Non-African American) 57.9 ml/min; Globulin 2.6 gm/dl (2.5-4.0); Glucose 115 mg/dl (70-99); Sodium 139 mmol/L (136-145); Total Protein 6.8 gm/dl (6.0-8.3)
--- NOTE | 2021-06-27 18:25 | XRay Report ---
XR chest 1V portable HISTORY: 75 years-old Female cvasx acute strokelike symptoms. COMPARISON: Chest radiograph 06/18/2016 TECHNIQUE: Portable AP view of the chest FINDINGS: Cardiac mediastinal and hilar silhouettes are unchanged. No pneumothorax, pleural effusion, airspace consolidation or overt pulmonary edema. Nipple shadow projects over the right lung base. Degenerative changes of the shoulders and spine. Cholecystectomy. IMPRESSION: No acute process. ACT 112: Negative or not required by law. The above report was generated using voice recognition software. It may contain grammatical, syntax o r spelling errors. Electronically signed by: Russell Li M.D. 06/27/2021 6:24 PM
--- NOTE | 2021-06-27 18:28 | XRay Report ---
XR shoulder LT min 2V routine, XR humerus LT 2V HISTORY: 75 years-old Female Alexus/edgar acute left shoulder and arm pain with weakness statu s post fall COMPARISON: Chest radiograph of same day TECHNIQUE: 2 views of the left shoulder with 2 views of the left humerus FINDINGS: SHOULDER: There is severe glenohumeral with moderate AC joint osteoarthritis. Demineralized appearance of the b ones. There is no acute fracture, dislocation or opaque foreign body. Unremarkable soft tissues. HUMERUS: No acute fracture or dislocation. Unremarkable soft tissues. IMPRESSION: 1. No acute fracture or dislocation. 2. Severe glenohumeral osteoarthritis. ACT 112: Negative or not required by law. The above report was generated using voice recognition software. It may contain grammatical, syntax o r spelling errors. Electronically signed by: Russell Li M.D. 06/27/2021 6:27 PM
--- NOTE | 2021-06-27 18:28 | XRay Report ---
XR shoulder LT min 2V routine, XR humerus LT 2V HISTORY: 75 years-old Female lAexus/edgar acute left shoulder and arm pain with weakness statu s post fall COMPARISON: Chest radiograph of same day TECHNIQUE: 2 views of the left shoulder with 2 views of the left humerus FINDINGS: SHOULDER: There is severe glenohumeral with moderate AC joint osteoarthritis. Demineralized appearance of the b ones. There is no acute fracture, dislocation or opaque foreign body. Unremarkable soft tissues. HUMERUS: No acute fracture or dislocation. Unremarkable soft tissues. IMPRESSION: 1. No acute fracture or dislocation. 2. Severe glenohumeral osteoarthritis. ACT 112: Negative or not required by law. The above report was generated using voice recognition software. It may contain grammatical, syntax o r spelling errors. Electronically signed by: Russell Li M.D. 06/27/2021 6:27 PM
[2021-06-27] MEDS ORDERED: OPTIRAY 320 125ml IV ONE (18:34)
--- NOTE | 2021-06-27 19:09 | CT Scan Report ---
CT head/brain wo con CLINICAL HISTORY: 75 years-old Female with LUEweakness. Acute strokelike symptoms TECHNIQUE: Multiple axial CT images of the head were obtained without contrast. A dose lowering tech nique was utilized adhering to the principles of ALARA. CT DOSE: 962.66 mGy.cm COMPARISON: CTA head and neck of same day FINDINGS: No acute intracranial hemorrhage, midline shift, intracranial mass, hydrocephalus, territorial ischem ia or abnormal extra-axial collection. Age-related involutional changes. Suggested embolization noted within the region of the distal basilar artery with additional linear radiodense postoperative mater ial noted within the posterior fossa near the midline. The calvarium is intact. The paranasal sinuses, mastoid air cells, and middle ear cavities are clear . IMPRESSION: No acute intracranial abnormality. ACT 112: Negative or not required by law. The above report was generated using voice recognition software. It may contain grammatical, syntax o r spelling errors. Electronically signed by: Russell Li M.D. 06/27/2021 7:07 PM
--- NOTE | 2021-06-27 19:23 | CT Scan Report ---
CT angio neck with con, CT angio head w con CLINICAL HISTORY: 75 years-old Female with LUEweakness fall today chiropractor manipulation. Acute left upper extremity weakness with recent chiropractor manipulation. COMPARISON STUDY: Head CT of same day TECHNIQUE: Following the IV administration of 10 7 mL of Optiray, CT angiogram of the head and neck w as performed from the aortic arch to the skull apex. Images are reviewed in the axial, sagittal, and coronal planes. 3-D MIPS images are created and assessed. IV contrast was administered without compli cation. All measurements were calculated based on NASCET criteria. A dose lowering technique was uti lized adhering to the principles of ALARA. FINDINGS: Atherosclerosis of the thoracic aortic arch results in mild narrowing of the proximal left subclavian artery. The innominate and imaged subclavian arteries are patent. The common carotid and internal ca rotid arteries are widely patent. The middle and anterior cerebral arteries are patent. Codominant an d patent vertebral arteries. There is a 2.5 mm saccular outpouching noted along the anterior margin o f the distal V2 segment of the right vertebral artery on image 308 of series 6. The basilar artery is patent. There is a metallic occlusion device present the basilar tip. origin of the left poste rior cerebral artery. The bilateral posterior cerebral arteries appear to be patent. The cerebral milady ous sinuses are patent. Surgical suture material noted within the distribution of the occipital sinus . Biapical pleural-parenchymal scarring. Subcentimeter subpleural solid nodule of the lung apices also favored to represent scarring. Subcentimeter bilateral thyroid nodules. Degenerative changes of the c ervical spine. Ill-defined area of decreased attenuation involves the right cerebellar hemisphere ottoniel suring 1.8 cm on image 11 of series 7. IMPRESSION: 1. Atherosclerotic plaque of the thoracic aortic arch results in mild narrowing of less than 50% at t he origin of the left subclavian artery. 2. 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 3. Otherwise unremarkable CTA of the head and neck. 4. Ill-defined focus of decreased attenuation within the right cerebellar hemisphere is suspicious fo r an age-indeterminate infarct. Correlate with prior imaging. ACT 112: Negative or not required by law. The above report was generated using voice recognition software. It may contain grammatical, syntax o r spelling errors. Electronically signed by: Russell iL M.D. 06/27/2021 7:21 PM
[2021-06-27 19:52] LABS: Appearance Urine Clear (Clear); Bacteria Urine Automated Negative (Negative); Bilirubin Urine Negative (Negative); Blood Urine Negative (Negative); Color Urine Yellow; Glucose Urine UA Negative (Negative); Ketones Urine Negative (Negative); Leukocyte Esterase Urine Trace (Negative); Nitrite Urine Negative (Negative); Protein Urine Negative (Negative); RBC Urine Automated 0-4 /hpf (0-4); Urobilinogen Urine Negative (Negative); pH Urine 7.5 (4.5-7.5)
[2021-06-27] MEDS ORDERED: CLOPIDOGREL BISULFATE 75 MG TAB PO ONE (21:11)
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
[2021-06-27] MEDS ORDERED: LORazepam 0.25 MG/0.5 ML VIAL IV PRN (22:51)
[2021-06-27] MEDS ORDERED: traMADol HCL 50 MG TABLET PO PRN (22:51)
[2021-06-27] MEDS ORDERED: ACETAMINOPHEN 325 MG TAB PO PRN (22:51)
[2021-06-27] MEDS ORDERED: PROMETHAZINE HCL 6.25 MG in SODIUM CHLORIDE 0.9% 50 ML IV PRN (22:51)
[2021-06-27] MEDS ORDERED: SODIUM CHLORIDE 0.9% 1000ML 1,000 ML IV ONE (22:51)
--- NOTE | 2021-06-28 08:12 | Magnetic Resonance Report ---
MRI OF THE BRAIN WITHOUT CONTRAST CLINICAL HISTORY: Transient ischemic attack. Recent fall. Left arm weakness. COMPARISON STUDY: Head CT and CTA of the head June 27, 2021. TECHNIQUE: Utilizing a 1.5 Dina magnet and dedicated coil, multiplanar, multiecho imaging of the bra in was performed without IV contrast. FINDINGS: There are no foci of restricted diffusion to suggest acute infarct. No acute intracranial h emorrhage, midline shift or mass effect is present. Ventricular system is unremarkable. Basal cistern s are patent. There are no extra-axial collections. Flow-voids for the major intracranial vessels are present. 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 White matter T2 hyper intense foci suggest mild small vessel disease. 3 mm hypointense focus within the left cerebellar hem isphere is noted. This may reflect trace old blood products. Calvarial signal is unremarkable. Orbits are unremarkable. There is no evidence for sinusitis. There is no mastoid fluid. IMPRESSION: No acute intracranial findings. ACT 112: Negative or not required by law. Electronically signed by: Christ Cotto M.D. 06/28/2021 8:11 AM
[2021-06-28] MEDS ORDERED: CLOPIDOGREL BISULFATE 75 MG TAB PO SCH (09:00)
[2021-06-28] MEDS ORDERED: CETIRIZINE HCL 10 MG TABLET PO SCH (09:00)
[2021-06-28] MEDS ORDERED: ENOXAPARIN INJ 30 MG/0.3 ML SYR SQ SCH (09:00)
[2021-06-28] MEDS ORDERED: FERROUS SULFATE 325 MG TAB PO SCH (09:00)
[2021-06-28] MEDS ORDERED: ASPIRIN 81 MG ECTAB PO SCH (09:00)
[2021-06-28 09:02] LABS: Basophils # (auto) 0.04 K/uL (0-0.2); Basophils % (auto) 0.7 %; Eosinophils # (auto) 0.09 K/uL (0-0.5); Eosinophils % (auto) 1.5 %; Hematocrit (blood only) 40.8 % (37-47); Hemoglobin 13.4 g/dL (12.0-16.0); Immature Granulocytes # (auto) 0.01 K/uL (0.00-0.02); Immature Granulocytes % (auto) 0.2 %; Lymphocytes # (auto) 1.59 K/uL (1.2-3.4); Lymphocytes % (auto) 26.5 %; Mean Corpuscular Hemoglobin 31.5 pg (25-34); Mean Corpuscular Hgb Conc 32.8 g/dL (32-36); Mean Platelet Volume 9.6 fL (7.4-10.4); Monocytes # (auto) 0.65 K/uL (0.11-0.59); Monocytes % (auto) 10.9 %; Neutrophils # (auto) 3.61 K/uL (1.4-6.5); Neutrophils % (auto) 60.2 %; Platelet Count 233 K/uL (130-400); RDW Coefficient of Variation 13.7 % (11.5-14.5); RDW Standard Deviation 48.8 fL (36.4-46.3); Red Blood Count 4.25 M/uL (4.2-5.4); White Blood Count 5.99 K/uL (4.8-10.8)
[2021-06-28 09:46] LABS: BUN Creatinine Ratio 17.4 (10-20); Calcium 8.9 mg/dl (8.5-10.1); Creatinine Clr Calc Pharmacy 50.9 ml/min; Est GFR (African American) 76.6 ml/min; Est GFR (Non-African American) 66.1 ml/min; Potassium 3.6 mmol/L (3.5-5.1)
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
[2021-06-28] MEDS ORDERED: POTASSIUM CHLORIDE CRTAB 20 MEQ TABCR PO STA (14:44)
--- NOTE | 2021-06-28 14:46 | Hospitalist Progress Note ---
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 Patient reports slipping on ice outside her home couple of hours prior to feeling weakness on the day of arrival at around 1 PM. Patient reports falling on back with her palm facing the ground, is unsure of trauma to head. She is being managed for the following: #. likely TIA #. 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 Patient was worried about stroke and hence presented to the hospital. Imagings upon admission: Head and Neck CTA: 2.5 mm saccular aneurysm of the distal V4 segment of the right vertebral artery, right cerebellar hemisphere w/ age indeterminate infarct. No acute findings. CXR/head CT/left humerus x-ray/left shoulder x-ray/brain MRI: No acute findings appreciated. ECHO: EF 60-65%, Gr I Diastolic dysfunction, no evidence of ASD but could not assess for PFO. PT/OT, neurology consultedappreciate recommendations. Patient started on Plavix on top of aspirin, will appreciate neurology's input in this regard. c/w tele monitoring #. Other chronic medical conditions [see above]: Resume/continue home meds when/as appropriate. DVT prophylaxis. Lovenox subcu Full code Disposition: PT/OT, expect discharge soon with neurology recommendation. Patient's Mr. Matt Musa, contact #[phone]. Admission and Anticipated Discharge Date Admission Date: June 27, 2021 Subjective Patient was sitting up in bed, on room air, NAD, no new acute events overnight. Patient reports improvement in her weakness of left hand and bilateral lower extremity which is the primary reason for this hospital visit. Patient denies any fever/chills/chest pain/palpitations/regimen/acute changes in her bowel bladder habits/other review of symptoms. Physical Exam Physical Exam: GENERAL: Alert and oriented x3. NAD, on RA. HEENT: No pallor, no icterus. Pupils equal, round and reactive to light. Oral mucosa moist. NECK: No JVD, no neck masses. HEART: S1 and S2 heard. Regular rate and rhythm. Systolic murmur over Aortic > Pulmonic area, no gallop. RESPIRATORY SYSTEM: Normal AP diameter. No accessory muscle use. No wheezing, no crackles. ABDOMEN: Soft, bowel sounds present, nontender, no distention. CENTRAL NERVOUS SYSTEM: No facial droop. Speech is clear. Obeys simple commands. Moves extremities. BLE and BUE strength normal. EXTREMITIES: No edema, no erythema seen. Results & Data Results & Data ([facility]) Vital Signs (Past 12 Hours) Vital Signs Temp Pulse Pulse Resp BP Pulse Ox 06/28/21 07:58 71 06/28/21 04:33 36.7 C 79 20 102/67 95
--- NOTE | 2021-06-28 18:25 | Discharge Summary ---
Date of Service June 28, 2021 Admission HPI Per Admitting Provider History obtained from patient, family, and records. 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 Patient slipped on ice outside her home today causing her to land on both hands. Unsure about head trauma. Chronic left shoulder pain and chronic back pain complaints. Patient proceeded to her chiropractor appointment with subsequent manipulation was done. Around 3:30 PM, patient noted left upper extremity weakness without unusual neck pain/shoulder pain complaints. [place] like she was going to pass out. Tolerable achy headache symptoms. Patient took extra aspirin at home. Symptoms currently improving as per patient. Medical History as above Surgical History : Umbilical hernia repair, carotid artery/vertebral artery catheter placement, REMOTE ADVISOR arterial occlusion embolization, varicose vein stripping, tonsillectomy, skin grafting, Family History : Lung cancer, heart disease, COPD Personal/Social history : Past tobacco abuse, occasional EtOH intake, lives with Admission Exam Per Admitting Provider GENERAL: Slightly anxious and uncomfortable, looks younger for stated age, no respiratory distress SKIN: Normal color, warm HEENT: [place] palpebral conjunctivae, no ptosis, moist buccal mucosa NECK : Supple, no tenderness CHEST : CTA, no tenderness HEART : RRR, no obvious murmurs ABDOMEN: Some distention, nontender EXTREMITIES : No LE swelling/tenderness, chronic posterior left shoulder tenderness, no other conspicuous deformities noted NEUROLOGIC : Coherent, no facial asymmetry, MMTs BUE (LUE slightly weaker than RUE, chronic from left shoulder issues as per patient), BLE 4/5 Principal Diagnosis TIA Left arm weakness Discharge Exam GENERAL: Alert and oriented x3. NAD, on RA. HEENT: No pallor, no icterus. Pupils equal, round and reactive to light. Oral mucosa moist. NECK: No JVD, no neck masses. HEART: S1 and S2 heard. Regular rate and rhythm. Systolic murmur over Aortic > Pulmonic area, no gallop. RESPIRATORY SYSTEM: Normal AP diameter. No accessory muscle use. No wheezing, no crackles. ABDOMEN: Soft, bowel sounds present, nontender, no distention. CENTRAL NERVOUS SYSTEM: No facial droop. Speech is clear. Obeys simple commands. Moves extremities. BLE and BUE strength normal. EXTREMITIES: No edema, no erythema seen. Discharge Data Allergies Allergy/AdvReac Type Severity Reaction Status Date / Time levofloxacin [From Levaquin] Allergy Intermediate "I Verified 06/27/21 18:52 COULDN'T WALK" dog dander Allergy Mild Congested Verified 06/27/21 18:52 tree and shrub pollen Allergy Mild Congested Verified 06/27/21 18:52 Sulfa (Sulfonamide AdvReac Mild Gastrointestinal Verified 06/27/21 18:52 Antibiotics) Upset lanolin AdvReac Unknown Verified 06/27/21 18:52 Consultations 06/27/21 20:08 ED Decision to Admit Stat 06/27/21 22:51 Consult Neurology Routine Ordered Studies 06/27/21 17:47 CT angio head w con Stat CT angio neck with con Stat 06/27/21 17:48 CT head/brain wo con Stat 06/27/21 22:51 MR brain wo con Routine Hospital Course (1) TIA (transient ischemic attack): 75-year-old lady with history significant for cerebral aneurysm, basilar artery aneurysm s/p embolization, 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 Patient reports slipping on ice outside her home couple of hours prior to feeling weakness on the day of arrival at around 1 PM. Patient reports falling on back with her palm facing the ground, is unsure of trauma to head. She was managed for the following: #. likely TIA #. 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 Patient was worried about stroke and hence presented to the hospital. Imagings upon admission: Head and Neck CTA: 2.5 mm saccular aneurysm of the distal V4 segment of the right vertebral artery, right cerebellar hemisphere w/ age indeterminate infarct. No acute findings. CXR/head CT/left humerus x-ray/left shoulder x-ray/brain MRI: No acute findings appreciated. ECHO: EF 60-65%, Gr I Diastolic dysfunction, no evidence of ASD but could not assess for PFO. PT/OT, neurology okay with patient going home, EMG as an outpatient per neurology. Patient is to follow-up with her PCP/neurologist as outpatient.. Continue with aspirin only per neurology, will add Lipitor small dose, patient to follow-up with CK level as an outpatient and follow-up with primary care closely for optimization of her antilipid treatment. #. Other chronic medical conditions [see above]: Resume/continue home meds when/as appropriate. DVT prophylaxis. Lovenox subcu Full code Patient may be discharged home with following instructions at the point of discharge: Follow-up with your primary care physician within 1 week time. Follow-up with neurology as an outpatient in 1 to 2 weeks time. Neurology evaluated you while inpatient, they will set up EMG as an outpatient for your left hand/arm weakness. Follow-up with neurology. You were started on a low-dose of statin, please follow-up with your primary care physician for optimization of your cholesterol control. Get your blood work CK done in a week time. LFT as OP in a month time. Total Time Total Time Spent Total Time Spent (In Minutes): 40 Discharge Plan Discharge Items Patient Disposition: Home - Self-Care Reason For Visit: TIA Discharge Diagnosis: TIA Left arm weakness Activity: Resume your previous activity Non-emergency contact: Primary Care Provider Call non-emergency contact if: you have any medication questions, your symptoms worsen and your temperature is above 101 Follow-up/Referrals: Naima Rutledge MD [Primary Care Provider] - Diet: Heart Healthy Addtl Attending Provider Instructions: Follow-up with your primary care physician within 1 week time. Follow-up with neurology as an outpatient in 1 to 2 weeks time. Neurology evaluated you while inpatient, they will set up EMG as an outpatient for your left hand/arm weakness. Follow-up with neurology. You were started on a low-dose of statin, please follow-up with your primary care physician for optimization of your cholesterol control. Get your blood work CK done in a week time. LFT in a month time. Pending Studies at Discharge: No Stand-Alone Forms: [employer], Smoking Cessation Medications and DC Order Prescriptions: New atorvastatin 20 mg tablet 20 mg PO HS Qty: 30 RF: 0 Continued ascorbic acid (vitamin C) [Vitamin C] 500 mg Tablet 500 mg PO DAILY RF: 0 zinc 50 mg Tablet 50 mg PO DAILY RF: 0 cetirizine [Zyrtec] 10 mg Tablet 5 mg PO DAILY RF: 0 calcium carbonate-vitamin D3 [Calcium 500 + D] 500 mg(1,250mg) -200 unit Tablet 1 tab PO DAILY RF: 0 ferrous sulfate 325 mg (65 mg iron) Tablet 325 mg PO DAILY RF: 0 magnesium 250 mg Tablet 250 mg PO DAILY RF: 0 cholecalciferol (vitamin D3) [Vitamin D3] 25 mcg (1,000 unit) Tablet 25 mcg PO DAILY RF: 0 aspirin [Aspirin Low Dose] 81 mg Tablet,Delayed Release (Dr/Ec) 81 mg PO DAILY RF: 0 Discharge Orders: Discharge Order (Routine); Ordered 06/28/21 Ordered By: Erica Aleman Admission Data Admit Date/Time: 06/27/21 21:12 Attending Provider: Erica Aleman Admit Provider: Chauncey Ross Primary Care Provider: Naima Rutledge Other Providers: Chauncey Ross ; Consuelo Padilla ; Ahmet Kearns ; Consuelo Gomez ; Adan Jurado
--- NOTE | 2021-06-28 18:31 | Electrocardiogram Report ---
Test Reason : Blood Pressure : / mmHG Vent. Rate : 070 BPM Atrial Rate : 070 BPM P-R Int : 176 ms QRS Dur : 088 ms QT Int : 422 ms P-R-T Axes : 049 -43 049 degrees QTc Int : 455 ms Poor data quality, interpretation may be adversely affected Sinus rhythm with Premature supraventricular complexes Left axis deviation Low voltage QRS Cannot rule out Old Anteroseptal infarct (cited on or before 02-JUL-2016) Abnormal ECG When compared with ECG of 02-JUL-2016 18:20, Premature supraventricular complexes are now Present Vent. rate has decreased BY 35 BPM Confirmed by Warner Paul ([id number] on 06/28/2021 6:30:40 PM Referred By: REFERRED SELF Confirmed By:Warner Paul
== END 2021-06-28 20:08 | disposition home or self-care (01) ==
LOC: 2N 16:50 → ED 16:50 → 2N 22:36